=== PATIENT | female | born 1980 | race Caucasian/White ===

== ENCOUNTER 2020-07-29 09:09 | Emergency (ER) | payer OTHER ==
[~2020-07-29] VITALS: Ht 170.2 cm; Wt 129.3 kg
[~2020-07-29 09:09] MED LIST: CITA40TA13 PO; [UNRECOGNIZED DRUG - CODE] PO
[2020-07-29 09:18] VITALS: BP 147/94
[2020-07-29] MEDS ORDERED: FLUO10CA21 PO (09:49)
[2020-07-29] MEDS ORDERED: IBUP-2213 PO (09:49)
[2020-07-29 10:12] VITALS: BP 147/94
== END 2020-07-29 10:14 | disposition home or self-care (01) ==
LOC: MED 09:09
DX: H92.03 Otalgia, bilateral (principal); R59.9 Enlarged lymph nodes, unspecified; F32.9 Major depressive disorder, single episode, unspecified; Z98.890 Other specified postprocedural states; Z79.899 Other long term (current) drug therapy
CPT/HCPCS: 99281

== ENCOUNTER 2021-02-12 07:41 | Emergency (ER) | payer OTHER ==
[~2021-02-12] VITALS: Ht 170.2 cm; Wt 121.6 kg
[~2021-02-12 07:41] MED LIST changes: +FLUO10CA21 PO; +IBUP-2213 PO
[2021-02-12 07:45] VITALS: BP 149/85
--- NOTE | 2021-02-12 07:54 | NUR ---
TO ER BED 2
--- NOTE | 2021-02-12 08:00 | NUR ---
40 y/o F BIB self from home c/o nausea since 0100 today. Patient A&Ox4, ambulatory, reports acute onset of nausea and dizziness that began after taking Excedrin @ 11PM last night. Patient reports chronic back pain d/t work and tension headache and states Excedrin did not alleviate symptoms. Patient woke up at 1AM with nausea, denies vomiting, diarrhea, dysuria, urinary symptoms. Patient also reports bouts of dizziness where the room is spinning upon getting up from bed last night. Denies dizziness at this time. Denies chest pain, abdominal pain, headache, blurry vision. Denies any other medications prior to arrival. Pt placed into a gown; VSS respirations even/unlabored. Bed locked in lowest position, side rails x 1. PMH: anx/depression Meds: Prozac Sx: tonsils removed NKA
--- NOTE | 2021-02-12 08:15 | NUR ---
DR GAO AT BEDSIDE EVALUATING PT
[2021-02-12] MEDS: ONDANSETRON 4 MG ODT PO ONE (08:40)
[2021-02-12] MEDS: KETOROLAC 30 MG/ML VIAL IM ONE (08:40)
[2021-02-12 09:37] VITALS: BP 144/88
--- NOTE | 2021-02-12 09:43 | NUR ---
Patient reports relief to pain; rates 0/10; states nausea remains but "it is a lot better now." All pt needs met.
[2021-02-12] MEDS ORDERED: ONDA-24 SL (10:37)
== END 2021-02-12 10:48 | disposition home or self-care (01) ==
LOC: MED 07:41
DX: R51.9 Headache, unspecified (principal); R11.0 Nausea; R10.10 Upper abdominal pain, unspecified; F32.9 Major depressive disorder, single episode, unspecified; Z79.899 Other long term (current) drug therapy; Z90.49 Acquired absence of other specified parts of digestive tract
CPT/HCPCS: 81002; 81025; 96372; 99283; J1885; Q0162

== ENCOUNTER 2021-12-18 18:04 | Emergency (ER) | payer OTHER ==
[~2021-12-18] VITALS: Ht 170.2 cm; Wt 129.3 kg
[~2021-12-18 18:04] MED LIST changes: +ONDA-188 SL
[2021-12-18 18:31] VITALS: BP 152/93
--- NOTE | 2021-12-18 18:41 | NUR ---
RECEIVED CALL FROM [employer] WHO STATED PT LEFT FACILITY WITHOUT BEING SEEN BY A PROVIDER.
== END 2021-12-18 18:41 | disposition left against medical advice (07) ==
LOC: MED 18:04
DX: M79.674 Pain in right toe(s) (principal); Z53.21 Procedure and treatment not carried out due to patient leaving prior to being seen by health care provider

== ENCOUNTER 2022-06-23 10:28 | Emergency (ER) | payer OTHER ==
[~2022-06-23] VITALS: Ht 170.2 cm; Wt 139.7 kg
[2022-06-23 10:40] VITALS: BP 180/89
--- NOTE | 2022-06-23 10:45 | NUR ---
HERE FOR EPISTAXIS, NO BLEEDING AT THIS TIME, SR UP TIMES 2, AWAITS MD FREED
[2022-06-23] MEDS ORDERED: OXYM20SP1 NS (10:56)
--- NOTE | 2022-06-23 11:02 | NUR ---
NASAL CLAMPS GIVEN PER MD REQUEST, NO BLEEDING AT THIS TIME
--- NOTE | 2022-06-23 11:13 | NUR ---
Patient discharged with v/s stable. Written and verbal after care instructions given and explained. Patient verbalized understanding. Ambulatory with steady gait. All questions addressed prior to discharge. Advised to follow up with PMD.
[2022-06-23 11:14] VITALS: BP 150/79
== END 2022-06-23 11:10 | disposition home or self-care (01) ==
LOC: MED 10:28
DX: R04.0 Epistaxis (principal); F32.9 Major depressive disorder, single episode, unspecified; Z79.899 Other long term (current) drug therapy
CPT/HCPCS: 99281

== ENCOUNTER 2023-10-27 17:12 | Emergency (ER) | payer OTHER ==
[~2023-10-27] VITALS: Ht 170.2 cm; Wt 137.2 kg
[~2023-10-27 17:12] MED LIST changes: +OXYM20SP1 NS
[2023-10-27 17:46] VITALS: BP 172/98; PULSE 99; RESP 18; TEMP 97.8; O2SAT 99
[2023-10-27] MEDS: PHENYLEPHRINE 1% 15 ML BTL NS ONE (19:18)
[2023-10-27 19:19] VITALS: BP 162/97; PULSE 95; RESP 18; TEMP 98; O2SAT 99
== END 2023-10-27 20:04 | disposition home or self-care (01) ==
LOC: MED 17:12
DX: R04.0 Epistaxis (principal); Z79.899 Other long term (current) drug therapy
CPT/HCPCS: 99282